=== PATIENT | male | born 1960 | race Caucasian/White ===

== ENCOUNTER → 2021-12-16 10:34 | Outpatient (BNVA) | payer OTHER, SELFPAY | PROVIDERS: PCP Nurse Practitioner; Referring Provider Nurse Practitioner; Visit Provider Specialist | DX: G35 Multiple sclerosis (principal) | CPT/HCPCS: 99205 ==

== ENCOUNTER → 2022-01-05 14:07 | Outpatient (BNVA) | payer OTHER, SELFPAY | PROVIDERS: PCP Nurse Practitioner; Visit Provider Internal Medicine | DX: I25.10 Atherosclerotic heart disease of native coronary artery without angina pectoris (principal); R06.00 Dyspnea, unspecified; I10 Essential (primary) hypertension; F17.200 Nicotine dependence, unspecified, uncomplicated | CPT/HCPCS: 99204 ==

== ENCOUNTER 2022-02-02 08:41 | Outpatient (CLI) | payer OTHER, SELFPAY ==
[2022-02-02 08:57] VITALS: BP 102/68; PULSE 79; RESP 18; TEMP 36.5; O2SAT 97
[2022-02-02] MEDS: acetaminophen 500 mg Tablet 1000 MG PO (09:15)
[2022-02-02] MEDS: sodium chloride 0.9% 250 ML 50 ML IV (09:15)
[2022-02-02] MEDS: diphenhydrAMINE 50 mg/mL SDV 1mL 25 MG IVP (09:17)
[2022-02-02 09:54] VITALS: BP 104/66; PULSE 66; RESP 18; TEMP 36.3; O2SAT 95
[2022-02-02 10:37] VITALS: BP 105/67; PULSE 69; RESP 18; TEMP 36.1; O2SAT 98
[2022-02-02 12:07] VITALS: BP 116/71; PULSE 65; RESP 18; TEMP 36.1; O2SAT 97
== END 2022-02-02 08:42 | disposition home or self-care (01) ==
PROVIDERS: PCP Nurse Practitioner; Referring Provider Specialist; Visit Provider Specialist
DX: G35 Multiple sclerosis (principal)
CPT/HCPCS: 96365; 96366; 96375; J1200; J2350; J2930; J7040; J7050

== ENCOUNTER → 2022-04-05 09:44 | Outpatient (BNVA) | payer OTHER, SELFPAY | PROVIDERS: PCP Nurse Practitioner; Visit Provider Specialist | DX: G35 Multiple sclerosis (principal) | CPT/HCPCS: 99214 ==

== ENCOUNTER → 2022-05-05 15:22 | Outpatient (BNVA) | payer OTHER, SELFPAY | PROVIDERS: PCP Nurse Practitioner; Visit Provider Specialist | DX: G35 Multiple sclerosis (principal); G81.11 Spastic hemiplegia affecting right dominant side | CPT/HCPCS: 64642; 99213; J0585 ==

== ENCOUNTER 2022-06-25 06:09 | Outpatient (CLI) | payer OTHER, SELFPAY ==
--- NOTE | 2022-06-25 06:30 | USCV_ITS ---
EddiChris Age: 62 Gender: M : Exam Date: 06/25/2022 06:19 Ordering Phys: Villa Chopra M.D ([email or web address]) Technologist: VERNELL Exam Location: [facility] [place] Indication: hx of cad BP: 116 / 72 HR: 71 Rhythm: Sinus Technical Quality: MEASUREMENTS (Male / Female) Normal Values 2D ECHO LV Diastolic Diameter PLAX 2.9 cm 4.2 - 5.9 / 3.9 - 5.3 cm LV Systolic Diameter PLAX 2.1 cm IVS Diastolic Thickness 1.0 cm 0.6 - 1.0 / 0.6 - 0.9 cm IVS Systolic Thickness 1.2 cm LVPW Diastolic Thickness 1.4 cm 0.6 - 1.0 / 0.6 - 0.9 cm LVPW Systolic Thickness 1.5 cm LVOT Diameter 2.2 cm LV Ejection Fraction 2D Teich 54.7 % LV Ejection Fraction MOD 2C 74.0 % LV Ejection Fraction 2C AL 74.5 % LA Diameter 3.3 cm Aorta at Sinotubular Diameter 3.1 cm IVC Diameter 2.6 cm M-MODE MV E Point Septal Separation 1.0 cm DOPPLER AV Peak Velocity 93.7 cm/s LVOT Peak Velocity 87.0 cm/s AV Area Cont Eq vti 3.8 cm squared AV Area Cont Eq pk 3.4 cm squared MV Area PHT 5.0 cm squared Mitral E to A Ratio 1.2 MV E' Velocity 50.5 cm/s Mitral E to MV E' Ratio 9.7 Mitral E to LV E' Lateral Ratio 9.9 Mitral E to LV E' Septal Ratio 9.6 TR Peak Velocity 130.3 cm/s TR Peak Gradient 6.8 mmHg Right Atrial Pressure 3.0 mmHg Pulmonary Artery Systolic Pressu 9.8 mmHg RV Acceleration Time 0.2 s FINDINGS Left Ventricle Left ventricle is normal in size. LV systolic function is normal with EF 55 to 60%. No regional wall motion abnormalities are seen. Right Ventricle Normal in size and function Right Atrium Normal in size Left Atrium Normal in size Mitral Valve Structurally normal mitral valve. No significant stenosis or regurgitation. Aortic Valve Structurally normal aortic valve. No significant stenosis or regurgitation. Tricuspid Valve Trace tricuspid regurgitation. Insufficient TR jet to calculate RVSP Pulmonic Valve Not well visualized Pericardium Normal Aorta Normal in size IVC Appears to be normal CONCLUSIONS LV systolic function is normal with EF 55 to 60%. No significant valvular heart disease is seen. No comparison studies are available Villa Chopra MD (Electronically Signed) Final Date: 12 July 2022 07:00 S
== END 2022-06-25 06:10 | disposition home or self-care (01) ==
LOC: RAD 06:10
PROVIDERS: PCP Nurse Practitioner; Visit Provider Internal Medicine
DX: I10 Essential (primary) hypertension (principal)
CPT/HCPCS: 93306

== ENCOUNTER → 2022-07-29 13:34 | Outpatient (BNVA) | payer OTHER, SELFPAY | PROVIDERS: PCP Nurse Practitioner; Visit Provider Specialist | DX: G81.11 Spastic hemiplegia affecting right dominant side (principal); G35 Multiple sclerosis | CPT/HCPCS: 64642; 99213; J0585 ==

== ENCOUNTER 2022-08-04 08:30 | Outpatient (CLI) | payer OTHER, SELFPAY ==
[2022-08-04 08:48] VITALS: BP 132/80; PULSE 80; RESP 18; TEMP 36.7; O2SAT 98
[2022-08-04] MEDS: sodium chloride 0.9% 250 ML 50 ML IV (09:08)
[2022-08-04] MEDS: acetaminophen 500 mg Tablet 1000 MG PO (09:09)
[2022-08-04] MEDS: diphenhydrAMINE 50 mg/mL SDV 1mL 25 MG IVP (09:11)
[2022-08-04 10:30] VITALS: BP 116/74; PULSE 74; RESP 18; TEMP 36.1; O2SAT 99
[2022-08-04 11:00] VITALS: BP 116/72; PULSE 70; RESP 18; TEMP 36.1; O2SAT 99
[2022-08-04 12:29] VITALS: BP 111/77; PULSE 76; RESP 18; TEMP 36.4; O2SAT 99
== END 2022-08-04 08:31 | disposition home or self-care (01) ==
PROVIDERS: PCP Nurse Practitioner; Visit Provider Specialist
DX: G35 Multiple sclerosis (principal)
CPT/HCPCS: 96365; 96366; 96375; A4222; J1200; J2350; J2930; J7040; J7050

== ENCOUNTER 2022-09-02 14:34 | Emergency (ER) | payer OTHER, SELFPAY ==
[2022-09-02] VITALS (43 sets, daily range): BP systolic 108–129; BP diastolic 72–85; PULSE 72–74; RESP 17–18; TEMP 36.7; O2SAT 95–100
--- NOTE | 2022-09-02 16:27 | ED_ITS ---
HPI - Dizziness General: Chief Complaint: Dizziness Stated Complaint: Dizzy, confusion Time Seen by Provider: 09/02/22 16:27 History of Present Illness: HPI Narrative: Mr. Montague is a 62-year-old gentleman with significant past medical history of multiple sclerosis, hypertension, CAD presenting to the emergency department for episodes of dizziness. He reports over the past few months a number of these episodes which typically go away with rest. He describes no specific exacerbating or provoking situation however he develops a sudden onset spinning sensation associated with feeling off balance and like his legs are stuck to the floor. He began having an episode today few hours ago which has persisted for longer than other episodes and was also associated with diaphoresis. Intensity of symptoms when present is moderate to severe. Currently mild. No other specific changes in health, exacerbating, or alleviating factors identified. 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 Atherosclerotic heart disease of [place] coronary artery without angina pectoris Chronic obstructive pulmonary disease, unspecified Essential (primary) hypertension [place] Gastro-esophageal reflux disease without esophagitis Hemiplegia, unspecified affecting unspecified side Hyperlipidemia, unspecified Inactive tuberculosis Induration penis plastica Low back pain, unspecified Male erectile dysfunction, unspecified Multiple sclerosis Sensorineural hearing loss, bilateral Sleep apnea, unspecified Tinnitus, unspecified ear Social History Smoking and tobacco status: never smoked Physical Exam Const: COMMON NORMALS: patient oriented x3 and alert GENERAL APPEARANCE: cooperative and well developed HENMT: COMMON NORMALS: normocephalic and atraumatic HEAD & SCALP: n ormocephalic and atraumatic THROAT: posterior oropharynx normal Eye: COMMON NORMALS: conjunctivae normal CONJUNCTIVA: Yes conjunctivae normal SCLERA: sclerae normal Neck/C-Spine: COMMON NORMALS: supple GENERAL: Yes trachea midline Resp: COMMON NORMALS: normal respiratory effort EFFORT & INSPECTION: Yes able to speak in complete sentences Cardio: COMMON NORMALS: regular rate and regular rhythm RATE: regular rate RHYTHM: regular rhythm GI: COMMON NORMALS: Soft to palpation PALPATION: Yes Soft to palpation and No Tenderness to palpation present (GI) PERCUSSION: normal to percussion Extremity: GENERAL: Yes normal exam except as noted and No edema Neuro: COMMON NORMALS: patient oriented x3, CN's II-XII intact bilaterally and moves all extremities SENSORIUM/ORIENTATION: Yes alert and No Orientation impaired OTHER: Baseline spastic hemiplegia without new neurologic deficits appreciated. Psych: COMMON NORMALS: mental status grossly normal and Normal thought process present THOUGHT PROCESS: Normal thought process present Course Vital Signs: Vital signs: Vital Signs Temperature 98.1 F 09/02/22 14:37 Pulse Rate 74 09/02/22 20:42 Respiratory Rate 18 09/02/22 20:42 Blood Pressure 109/85 09/02/22 20:42 Pulse Oximetry 97 09/02/22 20:42 Oxygen Delivery Me thod 09/02/22 17:01 MDM - Dizziness Medical Decision Making 62-year-old gentleman with complex past medical history presenting with intermittent episodes of dizziness including more persistent episode today. Exam as above EKG demonstrates sinus rhythm with normal axis and intervals, no STEMI. Labs with mild leukocytosis, normal hemoglobin and platelet count. Metabolic panel without acute derangement to explain symptoms. No evidence of UTI. Chest x-ray with no lobar consolidation or pneumothorax. CT head without acute intracranial pathology to cause symptoms. There is perhaps right vertebral proximal vascular disease though no discrete lesion identified. Case discussed with neurology given patient's complex past medical history. In the absence of other specific findings and in the context of improvement patient satisfactory for outpatient management Patient somewhat improved with meclizine. Most likely cause of patient's symptoms is unspecified dizziness. The results of ED evaluation were discussed with the patient including prescriptions and/or symptomatic cares (if applicable) including appropriate and responsible use, followup plan, and return precautions. The patient verbalized understanding and felt safe for discharge. Medical Records I reviewed the patient's medical records. Lab Data I reviewed the patient's lab results. 09/02/22 16:50 09/02/22 16:50 Radiology Impressions Chest X-Ray 09/02/22 16:43 IMPRESSION: 1. Borderline cardiac size. 2. Mild prominence of reticular markings within the lower lungs bilaterally, likely chronic change. No focal infiltrate or consolidation or effusion. Head/Neck CTA 09/02/22 17:24 IMPRESSION: No large vessel stenosis or occlusion. IMPRESSION: Suggestion of inflow disease of the right vertebral artery proximally, with generalized decreased contrast density within the right vertebral artery in relation to the left. No stenosis or occlusion, otherwise. REFERENCES: NASCET CRITERIA. The degree of stenosis in the cervical segment of the internal carotid artery is based on NASCET criteria. Normal is no stenosis. Mild is less than 50% stenosis. Moderate is 50-69% stenosis. Severe is 70% to 99% stenosis. Total occlusion is no detectable patent lumen. Laboratory Results WBC 13.6 10^3/uL (4.0-10.0) H 09/02/22 16:50 RBC 4.98 10^6/uL (4.1-5.3) 09/02/22 16:50 Hgb 15.0 g/dL (11.7-16.6) 09/02/22 16:50 Hct 45.6 % (42.0-52.0) 09/02/22 16:50 MCV 91.6 fl (80-94) 09/02/22 16:50 MCH 30.1 pg (28.0-34.0) 09/02/22 16:50 MCHC 32.9 g/dL (30.0-36.0) 09/02/22 16:50 RDW 12.9 % (12.1-15.1) 09/02/22 16:50 Plt Count 258 10^3/cmm (130-400) 09/02/22 16:50 MPV 11.8 fL (7.4-10.4) H 09/02/22 16:50 Neut % (Auto) 79.4 % 09/02/22 16:50 Lymph % (Auto) 10.5 % 09/02/22 16:50 [place] % (Auto) 7.0 % 09/02/22 16:50 Eos % (Auto) 1.4 % 09/02/22 16:50 Baso % (Auto) 0.4 % 09/02/22 16:50 Neut # (Auto) 10.78 10^3/uL (1.8-7.7) H 09/02/22 16:50 Lymph # (Auto) 1.4 10^3/uL (0.8-4.8) 09/02/22 16:50 [place] # (Auto) 1.0 10^3/uL (0.2-0.9) H 09/02/22 16:50 Eos # (Auto) 0.2 10^3/uL (0.0-0.8) 09/02/22 16:50 Baso # (Auto) 0.1 10^3/uL (0.0-0.1) 09/02/22 16:50 Nucleated RBC % (auto) 0 % 09/02/22 16:50 Nucleated RBCs # 0.0 /100WBC 09/02/22 16:50 Sodium 138 mmol/L (136-145) 09/02/22 16:50 Potassium 4.7 mmol/L (3.5-5.1) 09/02/22 16:50 Chloride 99 mmol/L (98-107) 09/02/22 16:50 Carbon Dioxide 28 mmol/L (22-29) 09/02/22 16:50 Anion Gap 15.7 (5-19) 09/02/22 16:50 BUN 10 mg/dL (8-23) 09/02/22 16:50 Creatinine 0.9 mg/dL (0.7-1.2) 09/02/22 16:50 GFR Calculation 85.5 mL/min (90-130) L 09/02/22 16:50 Glucose 101 mg/dL (65-115) 09/02/22 16:50 Calculated Osmolality 285 mOsm/kg (285-295) 09/02/22 16:50 Calcium 10.0 mg/dL (8.5-10.5) 09/02/22 16:50 Magnesium 2.0 mg/dL (1.7-2.3) 09/02/22 16:50 Total Bilirubin 0.3 mg/dL (0.15-1.2) 09/02/22 16:50 AST 17 U/L (0-40) 09/02/22 16:50 ALT 16 U/L (0-41) 09/02/22 16:50 Alkaline Phosphatase 74 U/L (40-130) 09/02/22 16:50 Troponin T Baseline 13 ng/L (0-15) 09/02/22 16:50 Troponin T 120 Minute 13.06 ng/L (0-15) 09/02/22 19:04 Delta Troponin T 0.06 ABS# (0-10) 09/02/22 19:04 NT-Pro-B Natriuret Pep 152 pg/mL (0-125) H 09/02/22 16:50 Total Protein 7.0 g/dL (6.6-8.7) 09/02/22 16:50 Albumin 4.2 g/dL (3.5-5.2) 09/02/22 16:50 Globulin 2.8 g/dL (1.3-4.6) 09/02/22 16:50 TSH 1.83 uIU/mL (0.27-4.20) 09/02/22 16:50 Urine Color Yellow (Yellow) 09/02/22 19:57 Urine Appearance Clear (CLEAR) 09/02/22 19:57 Urine pH 5 (5-7) 09/02/22 19:57 Ur Specific [place] 1.010 (1.005-1.030) 09/02/22 19:57 Urine Protein Neg (Negative) 09/02/22 19:57 Urine Glucose (UA) Norm (Normal) 09/02/22 19:57 Urine Ketones Negative (Negative) 09/02/22 19:57 Urine Blood Neg (Negative) 09/02/22 19:57 Urine Nitrate Negative (Negative) 09/02/22 19:57 Urine Bilirubin Neg (Negative) 09/02/22 19:57 Urine Urobilinogen Neg mg/dL (Negative) 09/02/22 19:57 Ur Leukocyte Esterase Negative (Negative) 09/02/22 19:57 Discharge Plan Discharge Patient Disposition: Home Clinical Impression: Dizziness Condition: Stable Prescriptions: New meclizine 25 mg tablet 25 mg PO TID PRN (Reason: dizziness) Qty: 30 0RF No Action albuterol sulfate 90 mcg/actuation aerosol powdr breath activated 2 inh inhalation Q6H PRN calcium carbonate-vitamin D2 500 mg(1,250mg) -200 unit tablet PO carboxymethylcellulose sodium 0.5 % dropperette 2 drp ophthalmic (eye) BID fluticasone propion-salmeterol 250-50 mcg/dose blister with device 1 inh inhalation BID ibuprofen 800 mg tablet 800 mg PO BID lisinopril 10 mg tablet 10 mg PO BID aspirin 81 mg tablet,delayed release (DR/EC) 81 mg PO DAILY atorvastatin [Lipitor] 80 mg tablet 40 mg PO DAILY dalfampridine [Ampyra] 10 mg tablet extended release 12 hr 10 mg PO Q12H Qty: 180 0RF baclofen 10 mg tablet 20 mg PO QID PRN (Reason: muscle spasm) Qty: 120 5RF Rx Instructions: Take 1-4 tablets at night as needed for muscle spasms. Discharge Orders: Discharge ED (Routine); Ordered 09/02/22 Ordered By: Sukumar Mariee Referrals: Aurora Lo FNP [Primary Care Provider] - Discharge Diet: Usual diet Discharge Activity: Resume usual activity Patient Instructions: Dizziness (ED) Activity Restrictions/Additional Instructions: Thank you for visiting the emergency department. You were seen and evaluated for episodes of dizziness. The exact cause of your symptoms is unclear though likely peripheral in nature such as vertigo. I will prescribe meclizine given your improvement. Please ensure that you are staying hydrated. Please follow-up with neurology and your primary care provider. Return to the emergency department for worsening symptoms, any new neurologic symptoms, or anything else that you are concerned about and feel needs emergency department evaluation. Coding Level of Care Code ED [employer] for Cathy Schmitt
--- NOTE | 2022-09-02 16:43 | XRR_ITS ---
PROCEDURE INFORMATION: Exam: XR Chest Exam date and time: 09/02/2022 5:08 PM Age: 62 years old Clinical indication: Other: Dizzy; Additional info: Dizzy episodes, going on for 1 month worse today TECHNIQUE: Imaging protocol: Radiologic exam of the chest. Views: 1 view. COMPARISON: No relevant prior studies available. FINDINGS: Lungs: Mild prominence of reticular markings within the lower lungs bilaterally, likely chronic. No consolidation. Pleural spaces: Unremarkable. No pleural effusion. No pneumothorax. Heart/Mediastinum: Borderline cardiac size. Bones/joints: Mild spondylotic change thoracic spine. XR/XR chest 1V portable [id number] IMPRESSION: 1. Borderline cardiac size. 2. Mild prominence of reticular markings within the lower lungs bilaterally, likely chronic change. No focal infiltrate or consolidation or effusion.
--- NOTE | 2022-09-02 16:44 | ECG_ITS ---
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 Measurements Intervals [place] Rate: 70 P: 18 MI: 143 QRS: -14 QRSD: 101 T: 78 QT: 393 QTc: 425 Interpretive Statements SINUS RHYTHM NONSPECIFIC T-WAVE ABNORMALITY No previous ECG available for comparison Electronically Signed On 09-03-2022 7:54:34 BILINGUAL STUDENT TUTOR by Shagufta Garcia M.D. [id number]
[2022-09-02 17:20] LABS: Basophils # 0.1 10^3/uL (0.0-0.1); Basophils % 0.4 %; Eosinophils # 0.2 10^3/uL (0.0-0.8); Eosinophils % 1.4 %; Hematocrit 45.6 % (42.0-52.0); Lymphocytes # 1.4 10^3/uL (0.8-4.8); Lymphocytes % 10.5 %; Mean Corpuscular HGB Conc 32.9 g/dL (30.0-36.0); Mean Corpuscular Hemoglobin 30.1 pg (28.0-34.0); Mean Corpuscular Volume 91.6 fl (80-94); Mean Platelet Volume 11.8 fL (7.4-10.4); Neutrophils # 10.78 10^3/uL (1.8-7.7); Neutrophils % 79.4 %; Nucleated Red Blood Cells % 0 %; Platelet Count 258 10^3/cmm (130-400); Red Blood Count 4.98 10^6/uL (4.1-5.3); Red Cell Distribution Width 12.9 % (12.1-15.1); White Blood Count 13.6 10^3/uL (4.0-10.0)
--- NOTE | 2022-09-02 17:24 | CTR_ITS ---
PROCEDURE INFORMATION: Exam: CTA Head With Contrast, Arteriography Exam date and time: 09/02/2022 6:13 PM Age: 62 years old Clinical indication: Weakness; Additional info: Dizzyness, transient leg weakness TECHNIQUE: Imaging protocol: Computed tomographic angiography of the head with contrast. Exam focused on the arteries. 3D rendering (Not supervised by radiologist): MIP and/or 3D reconstructed images were created by the technologist. Radiation optimization: All CT scans at this facility use at least one of these dose optimization techniques: automated exposure control; mA and/or kV adjustment per patient size (includes targeted exams where dose is matched to clinical indication); or iterative reconstruction. Contrast material: OMNIPAQUE 350; Contrast volume: 95 ml; Contrast route: INTRAVENOUS (IV); Other protocol: This patient has received 0 known CTs and 0 known cardiac nuclear medicine studies in the 12 months prior to the current study. COMPARISON: No relevant prior studies available. RADIATION DOSE METRICS: Total DLP (mGy-cm): 1091.97 FINDINGS: ANTERIOR CIRCULATION: Right internal carotid artery: Intracranial segment is patent with no significant stenosis. No aneurysm. Right middle cerebral artery: No occlusion or significant stenosis. No aneurysm. Right anterior cerebral artery: No occlusion or significant stenosis. No aneurysm. Left internal carotid artery: Intracranial segment is patent with no significant stenosis. No aneurysm. Left middle cerebral artery: No occlusion or significant stenosis. No aneurysm. Left anterior cerebral artery: No occlusion or significant stenosis. No aneurysm. POSTERIOR CIRCULATION: Right vertebral artery: No occlusion or significant stenosis. No aneurysm. Left vertebral artery: No occlusion or significant stenosis. No aneurysm. Basilar artery: No occlusion or significant stenosis. No aneurysm. Right posterior cerebral artery: No occlusion or significant stenosis. No aneurysm. Left posterior cerebral artery: No occlusion or significant stenosis. No aneurysm. Brain: No definite mass, mass effect, or midline shift. Mild atrophic change Cerebral ventricles: No ventriculomegaly. Bones/joints: Unremarkable. No acute fracture. Soft tissues: Unremarkable. PROCEDURE INFORMATION: Exam: CTA Neck With Contrast Exam date and time: 09/02/2022 6:13 PM Age: 62 years old Clinical indication: Weakness; Additional info: Dizzyness, transient leg weakness TECHNIQUE: Imaging protocol: Computed tomographic angiography of the neck with contrast. 3D rendering (Not supervised by radiologist): MIP and/or 3D reconstructed images were created by the technologist. Radiation optimization: All CT scans at this facility use at least one of these dose optimization techniques: automated exposure control; mA and/or kV adjustment per patient size (includes targeted exams where dose is matched to clinical indication); or iterative reconstruction. Contrast material: OMNIPAQUE 350; Contrast volume: 95 ml; Contrast route: INTRAVENOUS (IV); Other protocol: This patient has received 0 known CTs and 0 known cardiac nuclear medicine studies in the 12 months prior to the current study. COMPARISON: CR XR chest 1V portable [id number] 09/02/2022 5:08 PM RADIATION DOSE METRICS: Total DLP (mGy-cm): 1091.97 FINDINGS: Right common carotid artery: No stenosis. No dissection or occlusion. Right internal carotid artery: No stenosis of the extracranial segment. No dissection or occlusion. Mild plaque. Right external carotid artery: No occlusion or stenosis of the origin. Left common carotid artery: No stenosis. No dissection or occlusion. Left internal carotid artery: No stenosis of the extracranial segment. No dissection or occlusion. Left external carotid artery: No occlusion or stenosis of the origin. Right vertebral artery: Suggestion of component of inflow disease with generalized decreased contrast density t throughout the right vertebral artery in relation to the left. No dissection or occlusion. Left vertebral artery: No stenosis. No dissection or occlusion. Soft tissues: Normal. No significant soft tissue swelling. Bones/joints: Degenerative change cervical spine. CT/CT angio headneck* [id number] IMPRESSION: No large vessel stenosis or occlusion. IMPRESSION: Suggestion of inflow disease of the right vertebral artery proximally, with generalized decreased contrast density within the right vertebral artery in relation to the left. No stenosis or occlusion, otherwise. REFERENCES: NASCET CRITERIA. The degree of stenosis in the cervical segment of the internal carotid artery is based on NASCET criteria. Normal is no stenosis. Mild is less than 50% stenosis. Moderate is 50-69% stenosis. Severe is 70% to 99% stenosis. Total occlusion is no detectable patent lumen.
[2022-09-02 17:41] LABS: Troponin(5th) Baseline 13 ng/L (0-15)
[2022-09-02 17:50] LABS: Alanine Aminotransferase 16 U/L (0-41); Albumin Level 4.2 g/dL (3.5-5.2); Alkaline Phosphatase 74 U/L (40-130); Anion Gap 15.7 (5-19); Aspartate Amino Transferase 17 U/L (0-40); Blood Urea Nitrogen 10 mg/dL (8-23); Carbon Dioxide 28 mmol/L (22-29); Chloride 99 mmol/L (98-107); Globulin 2.8 g/dL (1.3-4.6); Glomerular Filtration Rate 85.5 mL/min (90-130); Glucose 101 mg/dL (65-115); NT Pro B Type Natriuretic Pept 152 pg/mL (0-125); Osmolality Calculated 285 mOsm/kg (285-295); Potassium 4.7 mmol/L (3.5-5.1); Sodium 138 mmol/L (136-145); Thyroid Stimulating Hormone 1.83 uIU/mL (0.27-4.20); Total Bilirubin 0.3 mg/dL (0.15-1.2)
[2022-09-02] MEDS: iohexol 350 mg/mL 500 mL Btl (per mL) IV (18:19)
[2022-09-02 19:34] LABS: Troponin 5 2HR 13.06 ng/L (0-15)
[2022-09-02 19:35] LABS: Troponin 5 2HR Delta 0.06 ABS# (0-10)
[2022-09-02] MEDS: meclizine 25 mg tablet PO (19:55)
[2022-09-02 20:01] LABS: Add Urine Microscopic? NO; Charge for UA Resulting for Rev
--- NOTE | 2022-09-02 20:01 | ECG_ITS ---
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 Measurements Intervals [place] Rate: 75 P: 30 WI: 155 QRS: -35 QRSD: 93 T: 78 QT: 389 QTc: 435 Interpretive Statements SINUS RHYTHM LEFT AXIS DEVIATION [QRS AXIS < -30] Compared to ECG 09/02/2022 17:10:42 Left-axis deviation now present T-wave abnormality no longer present Electronically Signed On 09-03-2022 8:12:50 MANAGING PRINCIPAL by Shagufta Garcia M.D. [id number]
[2022-09-02 20:07] LABS: Bilirubin Urine Neg (Negative); Blood Urine Neg (Negative); Glucose Urine UA Norm (Normal); Ketones Urine Negative (Negative); Leukocyte Esterase Urine Negative (Negative); Nitrate Urine Negative (Negative); Protein Urine Neg (Negative); Urine Appearance Clear (CLEAR); Urine Color Yellow (Yellow); Urobilinogen Urine Neg (Negative); pH Urine 5 (5-7)
--- NOTE | 2022-09-03 08:15 | DCPLANNER ---
Addendum entered by Janet Lockett 09/08/22 13:49: Patient had an appointment scheduled with neurology - patient did not attend appointment. Original Note: group sales manager had message to schedule a follow up appointment for patient with neurology. group sales manager sent patients information to the front office staff at neurology. Patients information will be printed and reviewed. Clinic will call patient with appointment information.
== END 2022-09-02 20:44 | disposition home or self-care (01) ==
PROVIDERS: Emergency Provider Emergency Medicine; PCP Nurse Practitioner
DX: R42 Dizziness and giddiness (principal); Z79.82 Long term (current) use of aspirin; I25.10 Atherosclerotic heart disease of native coronary artery without angina pectoris; J44.9 Chronic obstructive pulmonary disease, unspecified; I10 Essential (primary) hypertension; G81.90 Hemiplegia, unspecified affecting unspecified side; E78.5 Hyperlipidemia, unspecified; G35 Multiple sclerosis
CPT/HCPCS: 36415; 70496; 70498; 71045; 80053; 81003; 83735; 83880; 84443; 84484; 85025; 93005; 99285; J8597; Q9967

== ENCOUNTER → 2022-11-10 09:40 | Outpatient (BNVA) | payer OTHER, SELFPAY | PROVIDERS: PCP Nurse Practitioner; Visit Provider Nurse Practitioner Family | DX: I25.10 Atherosclerotic heart disease of native coronary artery without angina pectoris (principal); I10 Essential (primary) hypertension; Z79.82 Long term (current) use of aspirin | CPT/HCPCS: 99214 ==

== ENCOUNTER → 2022-12-01 12:59 | Outpatient (BNVA) | payer OTHER, SELFPAY | PROVIDERS: PCP Nurse Practitioner; Referring Provider Nurse Practitioner; Visit Provider Specialist | DX: M77.8 Other enthesopathies, not elsewhere classified (principal); M19.012 Primary osteoarthritis, left shoulder | CPT/HCPCS: 20610; 73030; 99204; J1100; J2795; J3301 ==

== ENCOUNTER 2023-02-08 08:10 | Oncology outpatient (recurring) (ONCR) | payer OTHER, SELFPAY ==
[2023-02-08 08:31] VITALS: BP 106/70; PULSE 84; RESP 18; TEMP 36.4; O2SAT 96
[2023-02-08 08:50] VITALS: BP 111/74; PULSE 63; RESP 18; TEMP 36.2; O2SAT 97
[2023-02-08] MEDS: acetaminophen 500 mg Tablet 1000 MG PO (09:08)
[2023-02-08] MEDS: diphenhydrAMINE 50 mg/mL SDV 1mL 25 MG IVP (09:09)
[2023-02-08] MEDS: methylPREDNISolone sod succ 125 mg SDV IVP (09:22)
[2023-02-08] MEDS: ocrelizumab 600 MG in sodium chloride 0.9% 500 ML 100 MG IV (09:35)
[2023-02-08 10:13] VITALS: BP 108/74; PULSE 64; RESP 18; TEMP 36.1; O2SAT 98
[2023-02-08 10:45] VITALS: BP 114/73; PULSE 65; RESP 18; TEMP 36.6; O2SAT 99
[2023-02-08 11:15] VITALS: BP 113/73; PULSE 62; RESP 18; TEMP 36.2; O2SAT 97
[2023-02-08 14:59] VITALS: BP 123/77; PULSE 67; TEMP 35.7; O2SAT 99
== END 2023-02-08 23:59 | disposition home or self-care (01) ==
LOC: ONCMED 08:13
PROVIDERS: PCP Nurse Practitioner; Visit Provider Internal Medicine Medical Oncology
DX: G35 Multiple sclerosis (principal)
CPT/HCPCS: 96375; 96413; 96415; J1200; J2350; J2930; J7040

== ENCOUNTER → 2023-02-10 14:35 | Outpatient (BNVA) | payer OTHER, SELFPAY | PROVIDERS: PCP Nurse Practitioner; Visit Provider Specialist | DX: G81.11 Spastic hemiplegia affecting right dominant side (principal); G35 Multiple sclerosis; F40.231 Fear of injections and transfusions | CPT/HCPCS: 99213; J0585 ==

== ENCOUNTER 2023-03-11 12:34 | Outpatient (CLI) | payer OTHER, SELFPAY ==
--- NOTE | 2023-03-11 13:00 | MR_ITS ---
WS: [id number] MR CERVICAL SPINE WO/W DATE OF EXAMINATION: 03/08/2023 COMPARISON: None. HISTORY: History of multiple sclerosis. TECHNIQUE: Sagittal T1, T2 and T2 inversion recovery; axial T2, T2 gradient and fiesta. Post gadolini um imaging with fat saturation technique. FINDINGS: Motion artifact degrades some images. Straightening of the normal cervical lordosis. No high grade central canal narrowing. Several chronic demyelinating peripheral lesions within the cervical cord. These are more prominent at right C3, rig ht C4-5, left C6, and right T1. No significant cord atrophy. No enhancing lesions to indicate active disease. C2-3: Spinal canal and foramen are patent. C3-4: Mild facet arthropathy. Mild Right bony foraminal narrowing. Spinal canal is patent. C4-5: Mild disc osteophyte complex with endplate ridging. Small central protrusion with slight indent ation on the cervical cord. Mild central canal stenosis. Mild bilateral bony foraminal narrowing with moderate facet arthropathy. C5-6: Mild disc osteophytic ridging. Mild left bony foraminal narrowing. Mild facet arthropathy. Spin al canal is patent. C6-7: Mild disc osteophytic ridging. Mild to moderate left and mild right bony foraminal narrowing. S kam canal is patent. Uncovertebral joint hypertrophy. C7-T1: Mild left greater than right bony foraminal narrowing. Spinal canal is patent. Slight anterolisthesis C5 on C6. IMPRESSION: 1. Straightening of the normal cervical lordosis. No high-grade central canal narrowing. 2. A few chronic peripheral demyelinating lesions within the cervical cord described above. No signi ficant cord atrophy. 3. No abnormal gadolinium enhancement to indicate active demyelinating disease. 4. Mild central canal stenosis C4-5 with a small central protrusion and slight contact of the cervic al cord. 5. Mild to moderate bony foraminal narrowing worse at bilateral C4-5 worse on the left, bilateral C5 -6, left C6-7 and left C7-T1.
--- NOTE | 2023-03-11 13:45 | MR_ITS ---
WS: [id number] MRI THORACIC SPINE WITH CONTRAST TECHNIQUE: Sagittal T1, T2 and STIR imaging. Axial T2 imaging. Post gadolinium imaging was obtained. CLINICAL INFORMATION: M19.012 - Primary osteoarthritis, left shoulder COMPARISON: None. FINDINGS: Some images degraded by motion. Axial images degraded by motion which makes evaluation of s mall demyelinating lesions limited. A few small suspected chronic demyelinating lesions in the mid an d lower thoracic cord at T5, T9, and T11.No enhancing lesions to indicate active disease. No significant cord atrophy. Mild thoracic curve. No acute compression fractures. No high-grade centr al canal stenosis. Mild chronic anterior wedging in the midthoracic spine T7-T9. Mild facet arthropat hy lower thoracic spine. Mild right T11-12 bony foraminal narrowing. No significant disc extrusions o r protrusions. Normal visualized thoracic aorta. Adrenal lands are normal. IMPRESSION: 1. No enhancing lesions to indicate active disease. 2. A few areas of patchy signal normality in the thoracic cord suspicious for chronic demyelinating lesions at T5, T9, and T11. Evaluation is very limited due to motion artifact on the axial imaging. 3. No significant cord atrophy. 4. No significant central canal stenosis. 5. Mild facet arthropathy lower thoracic spine. 6. Mild right T11-12 bony foraminal narrowing.
[2023-03-11] MEDS: gadobenate dimeglumine 20 mL vial IV (14:33)
== END 2023-03-11 12:35 | disposition home or self-care (01) ==
LOC: RAD 12:37
PROVIDERS: PCP Nurse Practitioner; Visit Provider Specialist
DX: G35 Multiple sclerosis (principal); M48.02 Spinal stenosis, cervical region; M19.012 Primary osteoarthritis, left shoulder; M47.814 Spondylosis without myelopathy or radiculopathy, thoracic region; M48.04 Spinal stenosis, thoracic region; G81.11 Spastic hemiplegia affecting right dominant side; I10 Essential (primary) hypertension; I25.10 Atherosclerotic heart disease of native coronary artery without angina pectoris; M77.8 Other enthesopathies, not elsewhere classified; R06.00 Dyspnea, unspecified
CPT/HCPCS: 72156; 72157; A9577

== ENCOUNTER → 2023-05-31 14:02 | Outpatient (BNVA) | payer OTHER, SELFPAY | PROVIDERS: PCP Nurse Practitioner; Visit Provider Internal Medicine | DX: I25.10 Atherosclerotic heart disease of native coronary artery without angina pectoris (principal); R06.00 Dyspnea, unspecified; I10 Essential (primary) hypertension | CPT/HCPCS: 99214 ==

== ENCOUNTER → 2023-07-28 07:32 | Outpatient (BNVA) | payer OTHER, SELFPAY | PROVIDERS: PCP Nurse Practitioner; Visit Provider Specialist | DX: G81.11 Spastic hemiplegia affecting right dominant side (principal); G35 Multiple sclerosis | CPT/HCPCS: 64642; 99214; J0585 ==

== ENCOUNTER 2023-08-22 08:24 | Oncology outpatient (recurring) (ONCR) | payer OTHER, SELFPAY ==
[2023-08-22 08:36] VITALS: BP 113/66; PULSE 82; RESP 16; TEMP 36.6; O2SAT 97
[2023-08-22] MEDS: acetaminophen 500 mg Tablet 1000 MG PO (09:08)
[2023-08-22] MEDS: diphenhydrAMINE 50 mg/mL SDV 1mL 25 MG IVP (09:08)
[2023-08-22] MEDS: sodium chloride 0.9% 250 ML 75 ML IV (09:09)
[2023-08-22] MEDS: methylPREDNISolone sod succ 125 mg SDV IVP (09:14)
[2023-08-22 09:21] VITALS: BMI 33.7
[2023-08-22] MEDS: ocrelizumab 600 MG in sodium chloride 0.9% 500 ML 100 MG IV (09:30)
[2023-08-22 09:45] VITALS: BP 90/67; PULSE 75; RESP 16; TEMP 36.3; O2SAT 96
[2023-08-22 10:30] VITALS: BP 104/71; PULSE 71; RESP 16; TEMP 35.9; O2SAT 96
[2023-08-22 12:32] VITALS: BP 111/76; PULSE 69; RESP 16; TEMP 36; O2SAT 98
[2023-08-22 12:41] VITALS: BP 103/75; PULSE 72; RESP 16; TEMP 35.9; O2SAT 97
[2023-08-22 12:43] VITALS: BP 111/76; PULSE 69; RESP 16; TEMP 36; O2SAT 98
== END 2023-08-22 23:59 | disposition home or self-care (01) ==
LOC: ONCMED 08:25
PROVIDERS: PCP Nurse Practitioner; Visit Provider Internal Medicine Medical Oncology
DX: G35 Multiple sclerosis (principal)
CPT/HCPCS: 96375; 96413; 96415; J1200; J2350; J2930; J7040; J7050

== ENCOUNTER → 2023-12-01 13:40 | Outpatient (BNVA) | payer OTHER, SELFPAY | PROVIDERS: PCP Nurse Practitioner; Visit Provider Specialist | DX: G81.11 Spastic hemiplegia affecting right dominant side (principal); G35 Multiple sclerosis | CPT/HCPCS: 64642; J0585 ==

== ENCOUNTER 2024-02-16 07:42 | Oncology outpatient (recurring) (ONCR) | payer OTHER, SELFPAY ==
[2024-02-16] VITALS (7 sets, daily range): BP systolic 99–131; BP diastolic 68–76; PULSE 63–80; RESP 16–18; TEMP 36–36.6; O2SAT 94–98
[2024-02-16] MEDS: diphenhydrAMINE 50 mg/mL SDV 1mL 25 MG IVP (08:27)
[2024-02-16] MEDS: sodium chloride 0.9% 250 ML 75 ML IV (08:27)
[2024-02-16] MEDS: acetaminophen 500 mg Tablet 1000 MG PO (08:29)
[2024-02-16] MEDS: methylPREDNISolone sod succ 125 mg/2 mL INJ IVP (08:31)
[2024-02-16] MEDS: ocrelizumab 600 MG in sodium chloride 0.9% 500 ML 100 MG IV (08:44)
== END 2024-02-16 23:59 | disposition home or self-care (01) ==
PROVIDERS: PCP Nurse Practitioner; Visit Provider Internal Medicine Medical Oncology
DX: G35 Multiple sclerosis (principal); Z79.899 Other long term (current) drug therapy
CPT/HCPCS: 96375; 96413; 96415; A4222; J1200; J2350; J2919; J7040; J7050

== ENCOUNTER → 2024-02-28 14:21 | Outpatient (BNVA) | payer OTHER, SELFPAY | PROVIDERS: PCP Nurse Practitioner; Visit Provider Internal Medicine | DX: I25.10 Atherosclerotic heart disease of native coronary artery without angina pectoris (principal); R06.00 Dyspnea, unspecified; I10 Essential (primary) hypertension | CPT/HCPCS: 99213 ==

== ENCOUNTER → 2024-03-22 15:37 | Outpatient (BNVA) | payer OTHER, SELFPAY | PROVIDERS: PCP Nurse Practitioner; Visit Provider Specialist | DX: G81.11 Spastic hemiplegia affecting right dominant side (principal); G35 Multiple sclerosis | CPT/HCPCS: 64642; J0585 ==

== ENCOUNTER 2024-06-13 13:56 | Emergency (ER) | payer OTHER, SELFPAY ==
[2024-06-13 14:19] VITALS: BP 118/73; PULSE 71; RESP 20; TEMP 36.6; O2SAT 97
--- NOTE | 2024-06-13 14:29 | XR_ITS ---
WS: [id number] Exam: XR thoracic spine 3V* [id number] Date/Time of Exam: 06/13/2024 3:11 PM Reason For Exam: fall/mid back pain No acute fracture. Marked spondylosis. Mild dextroscoliosis. Mild degenerative disc change at all lev els. Normal paraspinal soft tissues. XR/XR thoracic spine 3V* [id number] IMPRESSION: 1. No fracture or malalignment. 2. Spondylosis and degenerative change. Slight dextroscoliosis.
--- NOTE | 2024-06-13 14:29 | XR_ITS ---
WS: [id number] Exam: XR lumbar spine 2-3V* [id number] Date/Time of Exam: 06/13/2024 3:11 PM Reason For Exam: fall/low back pain No fracture identified. Marked spondylosis. Disc spaces are relatively well-maintained. Facet arthrop athy at all levels. Aortic atherosclerosis. Probable diffuse idiopathic skeletal hyperostosis. XR/XR lumbar spine 2-3V* [id number] IMPRESSION: 1. Degenerative changes and spondylosis with numerous large anterior osteophyte s. 2. No fracture or malalignment. Probable diffuse idiopathic skeletal hyperostos is.
--- NOTE | 2024-06-13 14:38 | W.ED.BACK ---
HPI - Back Pain/Injury General: Chief Complaint: Back Pain/Injury Stated Complaint: back pain on left side radiates down to leg Time Seen by Provider: 06/13/24 14:22 Source: patient Mode of arrival: ambulatory Limitations: no limitations History of Present Illness: Patient is a 64-year-old male with past medical history of multiple sclerosis presenting to the emergency department complaining of right back pain radiating down the right leg beginning over the weekend. He states that he fell last week, soon after the pain developed to his right back. He denies history of sciatica, initially thought this may have been a flareup of his MS but after calling his neurologist was told to come to the emergency department for x-rays. He states the pain initially was just annoying but now it is severe and he has required the use of a walker. He is denying any bowel or bladder dysfunction. MD elicited complaint: back pain Pertinent past history: recent trauma (Fall last week) Onset (ago): week(s) Timing: constant and progressively worsening Severity: severe Location: right lower back and right upper back Radiation: right upper leg Exacerbating factors: movement and walking Context: fall Associated symptoms: Deny abdominal pain, chills, fever(s), nausea or vomiting Work related injury: No Related Data Home Medications Medication Instructions Recorded Confirmed albuterol sulfate 90 mcg/actuation 2 inh inhalation Q6H PRN 11/09/21 03/22/24 breath activated powder inhaler aspirin 81 mg tablet,delayed 81 mg PO DAILY 01/05/22 03/22/24 release atorvastatin 80 mg tablet (Lipitor) 80 mg PO DAILY 11/10/22 03/22/24 calcium carb-ergocalciferol (vit 1 tab PO .weekly 11/10/22 03/22/24 D2) 500 mg (1,250 mg)-200 unit tablet carboxymethylcellulose sodium 0.5 2 drp ophthalmic (eye) BID PRN 11/10/22 03/22/24 % eye drops in a dropperette fluticasone 250 mcg-salmeterol 50 1 inh inhalation BID PRN 11/10/22 03/22/24 mcg/dose blistr powdr for inhalation ibuprofen 800 mg tablet 800 mg PO BID PRN 11/10/22 03/22/24 lisinopril 10 mg tablet 10 mg PO DAILY 11/10/22 03/22/24 Previous Rx's Medication Instructions Recorded meclizine 25 mg tablet 25 mg PO TID PRN dizziness #30 tabs 09/02/22 baclofen 20 mg tablet 40 mg (2 x 20 mg) PO BID #360 tabs 12/14/23 diazepam 5 mg tablet 5 mg PO DAILY PRN anxiety 3 months 12/20/23 #90 tabs prednisone 20 mg tablet 60 mg (3 x 20 mg) PO ONCE 5 days 06/13/24 #15 tabs Allergies Allergy/AdvReac Type Severity Reaction Status Date / Time gabapentin Allergy Unknown Unknown Verified 03/22/24 16:31 Penicillins Allergy Unknown Unknown Verified 03/22/24 16:31 simvastatin Allergy Unknown Unknown Verified 03/22/24 16:31 Review of Systems General: Reports: 10 or more systems reviewed and unremarkable except in HPI and below Const: Reports: other (fall); Denies: fever(s) or chills Card: Denies: chest pain Resp: Denies: dyspnea or productive cough GI: Denies: abdominal pain, nausea, vomiting or diarrhea : Denies: flank pain Musc: Reports: back pain and extremity pain (Right lower extremity); Denies: neck pain, extremity swelling, joint pain, joint swelling, joint redness, joint warmth, limited range of motion or muscle weakness Skin/Breast: Denies: rash Neuro: Denies: headache(s), numbness in extremities or weakness in extremities PFSH ED PFSH: Medical History 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 Chronic obstructive pulmonary disease, unspecified Footdrop Gastro-esophageal reflux disease without esophagitis Hemiplegia, unspecified affecting unspecified side Hyperlipidemia, unspecified Inactive tuberculosis Induration penis plastica Low back pain, unspecified Male erectile dysfunction, unspecified Sensorineural hearing loss, bilateral Sleep apnea, unspecified Tinnitus, unspecified ear Multiple sclerosis Essential (primary) hypertension Social History Smoking and tobacco/nicotine status: current every day tobacco/nicotine user (3/4 pack a day) Physical Exam Const: COMMON NORMALS: no acute distress, patient oriented x3, no limitations, healthy appearing, alert and well nourished HENMT: COMMON NORMALS: normocephalic and atraumatic HEAD & SCALP: normocephalic and atraumatic Neck/C-Spine: COMMON NORMALS: full ROM, supple and no meningeal signs Resp: COMMON NORMALS: normal respiratory effort, No use of accessory muscles and clear to auscultation bilaterally AUSCULTATION: clear to auscultation bilaterally Cardio: COMMON NORMALS: regular rate and regular rhythm RATE: regular rate RHYTHM: regular rhythm Back/Pelvis: OTHER: Reproducible tenderness to palpation to right parathoracic muscles, right paralumbar muscles with no signs of trauma. No spinous process tenderness. Straight leg raise positive on the right with minimal lifting. Extremity: COMMON NORMALS: normal to inspection, full ROM, capillary refill normal, no joint enlargement and no clubbing, cyanosis or edema Neuro: COMMON NORMALS: patient oriented x3, moves all extremities, no focal motor deficits, no sensory deficits noted and deep tendon reflexes 2+ bilaterally SENSORIUM/ORIENTATION: Yes alert MENINGEAL SIGNS: Yes no meningeal signs Skin: COMMON NORMALS: no rashes or lesions noted GENERAL SKIN EXAM: no rashes or lesions noted Course Vital Signs: Vital signs: Vital Signs Temperature 97.9 F 06/13/24 14:19 Pulse Rate 71 06/13/24 14:19 Respiratory Rate 20 H 06/13/24 14:19 Blood Pressure 118/73 06/13/24 14:19 Pulse Oximetry 97 06/13/24 14:19 Oxygen Delivery Me thod Room Air 06/13/24 14:19 MDM - Back Pain/Injury Medical Decision Making Patient's x-rays today were negative for any fracture or acute changes. From the fall he likely did irritate his sciatic nerve and this has been causing lumbar radiculopathy, will treat with short course of steroids patient is already on baclofen. Being that we cannot rule out this is MS flare, will have him closely follow-up with neurologist. He does report some relief after receiving shots here. Return precautions given. Labs Radiology Impressions Lumbar Spine X-Ray 06/13/24 14:29 IMPRESSION: 1. Degenerative changes and spondylosis with numerous large anterior osteophytes. 2. No fracture or malalignment. Probable diffuse idiopathic skeletal hyperostosis. Thoracic Spine X-Ray 06/13/24 14:29 IMPRESSION: 1. No fracture or malalignment. 2. Spondylosis and degenerative change. Slight dextroscoliosis. All radiology interpretation(s) finalized by discharge Discharge Plan Discharge Patient Disposition: Home Clinical Impression: Lumbar radiculopathy Condition: Stable Prescriptions: New prednisone 20 mg tablet 60 mg PO ONCE 5 Days Qty: 15 0RF No Action albuterol sulfate 90 mcg/actuation aerosol powdr breath activated 2 inh inhalation Q6H PRN lisinopril 10 mg tablet 10 mg PO DAILY calcium carbonate-vitamin D2 500 mg(1,250mg) -200 unit tablet 1 tab PO .weekly Rx Instructions: 50, 000 units carboxymethylcellulose sodium 0.5 % dropperette 2 drp ophthalmic (eye) BID PRN ibuprofen 800 mg tablet 800 mg PO BID PRN fluticasone propion-salmeterol 250-50 mcg/dose blister with device 1 inh inhalation BID PRN aspirin 81 mg tablet,delayed release (DR/EC) 81 mg PO DAILY atorvastatin [Lipitor] 80 mg tablet 80 mg PO DAILY baclofen 20 mg tablet 40 mg PO BID Qty: 360 0RF Rx Instructions: Take 2 tablets in the AM and 2 at bedtime diazepam 5 mg tablet 5 mg PO DAILY PRN (Reason: anxiety) 90 Days Qty: 90 0RF Rx Instructions: Take at bed time meclizine 25 mg tablet 25 mg PO TID PRN (Reason: dizziness) Qty: 30 0RF Discharge Orders: Discharge ED (Routine); Ordered 06/13/24 Ordered By: James Stoddard Referrals: Aurora Lo, [employer] [Primary Care Provider] - Patient Instructions: Lumbar Radiculopathy (ED) Activity Restrictions/Additional Instructions: Prednisone and muscle laxer as prescribed. Follow-up with your neurologist for further evaluation. Return with any new or worsening. Coding Level of Care Code ED [facility] for Cathy Schmitt
[2024-06-13] MEDS: orphenadrine 30 mg/mL Inj 2 mL 60 MG IM (15:14)
[2024-06-13] MEDS: ketorolac 60 mg/2 mL INJ IM (15:14)
[2024-06-13] MEDS: dexamethasone 10 mg/mL INJ IM (15:14)
== END 2024-06-13 15:31 | disposition home or self-care (01) ==
PROVIDERS: Emergency Provider Physician Assistant; PCP Nurse Practitioner
DX: M54.16 Radiculopathy, lumbar region (principal); Z79.82 Long term (current) use of aspirin; F17.210 Nicotine dependence, cigarettes, uncomplicated; E78.5 Hyperlipidemia, unspecified; I10 Essential (primary) hypertension
CPT/HCPCS: 72072; 72100; 96372; 99284; J1100; J1885; J2360

== ENCOUNTER → 2024-06-29 13:15 | Outpatient (BNVA) | payer OTHER, SELFPAY | PROVIDERS: PCP Nurse Practitioner; Visit Provider Specialist | DX: G81.11 Spastic hemiplegia affecting right dominant side (principal); G35 Multiple sclerosis; M47.16 Other spondylosis with myelopathy, lumbar region | CPT/HCPCS: 64642; 99214; J0585 ==

== ENCOUNTER 2024-08-16 07:11 | Oncology outpatient (recurring) (ONCR) | payer OTHER, SELFPAY ==
[2024-08-16 08:00] VITALS: BP 114/81; PULSE 71; RESP 18; TEMP 36.6; O2SAT 96
[2024-08-16] MEDS: sodium chloride 0.9% 250 ML 75 ML IV (09:38)
[2024-08-16] MEDS: methylPREDNISolone sod succ 125 mg/2 mL INJ IVP (09:38)
[2024-08-16] MEDS: diphenhydrAMINE 50 mg/mL SDV 1mL 25 MG IVP (09:39)
[2024-08-16] MEDS: acetaminophen 500 mg Tablet 1000 MG PO (09:39)
[2024-08-16] MEDS: ocrelizumab 600 MG in sodium chloride 0.9% 500 ML 100 MG IV (10:09)
[2024-08-16 15:20] VITALS: BP 129/81; PULSE 75; RESP 18; TEMP 37.1; O2SAT 97
== END 2024-08-16 23:59 | disposition home or self-care (01) ==
PROVIDERS: PCP Nurse Practitioner; Visit Provider Specialist
DX: G35 Multiple sclerosis (principal); Z79.899 Other long term (current) drug therapy
CPT/HCPCS: 96413; 96415; J1200; J2350; J2919; J7040; J7050

== ENCOUNTER → 2024-09-21 13:39 | Outpatient (BNVA) | payer OTHER, SELFPAY | PROVIDERS: PCP Nurse Practitioner; Visit Provider Specialist | DX: G81.11 Spastic hemiplegia affecting right dominant side (principal); G35 Multiple sclerosis | CPT/HCPCS: 64642; 99212; J0585 ==

== ENCOUNTER → 2024-10-16 10:24 | Outpatient (BNVA) | payer OTHER, SELFPAY | PROVIDERS: PCP Nurse Practitioner; Visit Provider Nurse Practitioner Family | DX: I25.10 Atherosclerotic heart disease of native coronary artery without angina pectoris (principal); R06.00 Dyspnea, unspecified; I10 Essential (primary) hypertension | CPT/HCPCS: 99213 ==

== ENCOUNTER → 2024-12-21 09:54 | Outpatient (BNVA) | payer OTHER, SELFPAY | PROVIDERS: PCP Nurse Practitioner; Visit Provider Specialist | DX: G81.11 Spastic hemiplegia affecting right dominant side (principal); G35 Multiple sclerosis; M47.16 Other spondylosis with myelopathy, lumbar region | CPT/HCPCS: 64642; J0585; J9999 ==

== ENCOUNTER 2025-02-12 07:13 | Oncology outpatient (recurring) (ONCR) | payer OTHER, SELFPAY ==
[2025-02-12 07:55] VITALS: BP 98/63; PULSE 70; RESP 16; TEMP 36.1; O2SAT 95
[2025-02-12] MEDS: diphenhydrAMINE 50 mg/mL SDV 1mL 25 MG IVP (08:22)
[2025-02-12] MEDS: methylPREDNISolone sod succ 125 mg/2 mL INJ IVP (08:30)
[2025-02-12 09:32] VITALS: BP 105/68; PULSE 65; TEMP 36.1; O2SAT 95
[2025-02-12 09:49] VITALS: BP 101/65; PULSE 69; TEMP 35.8; O2SAT 93
[2025-02-12 10:20] VITALS: PULSE 67
[2025-02-12 11:30] VITALS: BP 111/70; TEMP 35.9
== END 2025-02-12 23:59 | disposition home or self-care (01) ==
PROVIDERS: PCP Nurse Practitioner; Visit Provider Specialist
DX: G35 Multiple sclerosis (principal); Z79.899 Other long term (current) drug therapy
CPT/HCPCS: 96375; 96413; 96415; A4222; J1200; J2350; J2919; J7040; J7050; J9999

== ENCOUNTER → 2025-03-28 09:03 | Outpatient (BNVA) | payer OTHER, SELFPAY | PROVIDERS: PCP Nurse Practitioner; Visit Provider Specialist | DX: G81.11 Spastic hemiplegia affecting right dominant side (principal); G35 Multiple sclerosis; M47.16 Other spondylosis with myelopathy, lumbar region | CPT/HCPCS: 64642; 99213; J0585; J9999 ==

== ENCOUNTER → 2025-04-22 14:44 | Outpatient (BNVA) | payer OTHER, SELFPAY | PROVIDERS: PCP Nurse Practitioner; Visit Provider Internal Medicine | DX: I25.10 Atherosclerotic heart disease of native coronary artery without angina pectoris (principal); R06.09 Other forms of dyspnea; I10 Essential (primary) hypertension; F17.200 Nicotine dependence, unspecified, uncomplicated | CPT/HCPCS: 99214 ==

== ENCOUNTER 2025-05-17 13:32 | Oncology outpatient (recurring) (ONCR) | payer OTHER, SELFPAY ==
--- NOTE | 2025-05-17 14:15 | USCV_ITS ---
PhilmontChris goddard Age: 65 Gender: M : 1960 Exam Date: 05/17/2025 14:30 Ordering Phys: Villa Chopra M.D ([email or web address]) Technologist: [place] [facility] [place]: Cp, SoB BP: 104 / 58 HR: 68 Rhythm: Sinus Technical Quality: Adequate MEASUREMENTS (Male / Female) Normal Values 2D ECHO LV Diastolic Diameter PLAX 5.8 cm 4.2 - 5.9 / 3.9 - 5.3 cm IVS Diastolic Thickness 0.9 cm 0.6 - 1.0 / 0.6 - 0.9 cm IVS Systolic Thickness 1.2 cm LVPW Diastolic Thickness 1.1 cm 0.6 - 1.0 / 0.6 - 0.9 cm LVPW Systolic Thickness 1.3 cm LVOT Diameter 2.2 cm LV Ejection Fraction 2D Teich 41.5 % LV Ejection Fraction MOD 4C 52.5 % LV Ejection Fraction MOD 2C 57.1 % LV Ejection Fraction 2C AL 60.1 % LA Diameter 3.1 cm RA Systolic Volume 4C AL 24.2 ml RA Systolic Volume 4C MOD 23.6 ml LA Sys Volume AL 40.5 cm cubed LA Sys Volume Index AL 18.4 cm cubed/m squared Aorta at Sinotubular Diameter 2.9 cm IVC Diameter 2.0 cm M-MODE LA Ao Ratio MM 1.4 AV Cusp Separation MM 1.9 cm DOPPLER AV Peak Velocity 120.0 cm/s LVOT Peak Velocity 77.0 cm/s AV Area Cont Eq vti 2.4 cm squared AV Area Cont Eq pk 2.4 cm squared MV Peak Velocity 63.0 cm/s MV Area PHT 3.0 cm squared Mitral E to A Ratio 0.8 TR Peak Velocity 88.0 cm/s TR Peak Gradient 3.1 mmHg TV Peak E Velocity 59.0 cm/s PV Peak Velocity 117.0 cm/s FINDINGS Left Ventricle Normal left ventricular size, systolic function and wall thickness, with no regional wall motion abnormalities. Left ventricular ejection fraction is estimated at 60%. Grade I/IV diastolic dysfunction (abnormal relaxation filling pattern), normal to mildly elevated filling pressures. Right Ventricle Normal right ventricular size and systolic function. Right Atrium Normal right atrial size. Left Atrium Normal left atrial size. IA Septum Normal appearance of the interatrial septum. Mitral Valve Mildly thickened mitral valve. No mitral valve stenosis. Mild mitral valve regurgitation. Aortic Valve Moderate aortic valve calcification. No aortic valve stenosis. Trace aortic valve regurgitation. Tricuspid Valve Normal tricuspid valve structure. No tricuspid valve stenosis or regurgitation. Normal pulmonary pressure. Pulmonic Valve Mild pulmonary valve regurgitation. Pericardium No pericardial effusion. Aorta Normal diameter of the aortic root and ascending thoracic aorta. IVC Normal IVC diameter. CONCLUSIONS Normal left ventricular size, systolic function and wall thickness, with no regional wall motion abnormalities. Left ventricular ejection fraction is estimated at 60%. Grade I/IV diastolic dysfunction (abnormal relaxation filling pattern), normal to mildly elevated filling pressures. Mildly thickened mitral valve. No mitral valve stenosis. Mild mitral valve regurgitation. There is no pericardial effusion. Right atrial pressure is around 5 mm of mercury. Taye Chun MD (Electronically Signed) Final Date: 26 May 2025 19:11 S
== END 2025-05-24 23:59 | disposition home or self-care (01) ==
LOC: ONCMED 13:33
PROVIDERS: Absent Provider Internal Medicine; PCP Nurse Practitioner; Visit Provider Specialist
DX: R06.00 Dyspnea, unspecified (principal); R07.9 Chest pain, unspecified; R93.1 Abnormal findings on diagnostic imaging of heart and coronary circulation; I34.1 Nonrheumatic mitral (valve) prolapse; I35.8 Other nonrheumatic aortic valve disorders; I37.1 Nonrheumatic pulmonary valve insufficiency
CPT/HCPCS: 93306